=== PATIENT | female | born 1990 | race Caucasian/White ===

== ENCOUNTER → 2016-10-10 | Outpatient (CLI) | payer OTHER ==
[2016-04-19 08:02] VITALS: BP 140/70
[2016-10-10 16:05] LABS: BASO # 0.1 x10^3/uL (0.0-0.2); BASO % 1 % (0-3); EOS % 2 % (0-3); HEMATOCRIT 40.5 % (36.0-47.0); HEMOGLOBIN 13.9 g/dL (12.0-15.5); LYMPH % 29 % (24-48); MEAN CORPUSCULAR HEMOGLOBIN 31 pg (25-35); MEAN CORPUSCULAR HGB CONC 34 g/dL (31-37); MEAN CORPUSCULAR VOLUME 92 fL (79-100); MONO % 8 % (0-9); NEUT % 61 % (31-73); PLATELET COUNT 222 x10^3/uL (140-400); RED BLOOD COUNT 4.42 x10^6/uL (3.50-5.40); RED CELL DISTRIBUTION WIDTH 12.5 % (11.5-14.5); WHITE BLOOD COUNT 13.8 x10^3/uL (4.0-11.0)
[2016-10-14 15:04] LABS: RPR REFLEX Non Reactive (Non Reactive)
== END | disposition home or self-care (01) ==
LOC: LAB 15:37
PROVIDERS: ATTEND Obstetrics & Gynecology
DX: Z32.01 Encounter for pregnancy test, result positive (principal)
CPT/HCPCS: 36415; 85027; 86593; 86703; 86762; 86850; 86900; 86901; 87340; 87341

== ENCOUNTER 2016-10-14 11:50 | Emergency (ER) | payer OTHER ==
[~2016-10-14] VITALS: Ht 170.2 cm; Wt 117.5 kg
[2016-10-14 12:05] VITALS: BP 162/95
--- NOTE | 2016-10-14 12:38 | ED.ADGEN ---
Past Medical History Past Medical History: No Pertinent History Past Surgical History: Cholecystectomy Alcohol Use: None Drug Use: None Adult General Chief Complaint Chief Complaint: VAGINAL BLEEDING HPI HPI Patient is a 25 year old G3, P2 1 female with estimated gestation 5 week who presents with intermittent vaginal bleeding with dull burning pelvic pain since yesterday. Patient ports minimal bleeding, which has been both dark brown and bright red at times. She currently denies any pain or bleeding. She denies dizziness lightheadedness or shortness of breath. Patient has been working with her fertility specialist/OB Dr. Grove and was taking Clomid and Glucophage prior to conceiving and is currently on Provera. She contacted her OB /OYSTER GROWER's office and was instructed to come to the emergency department today. Review of Systems Review of Systems ROS as per [facility] Allergies Allergies Allergies Coded Allergies Type Severity Reaction Last Updated Verified No Known Drug Allergies 04/19/16 No Physical Exam Physical Exam Constitutional: Well developed, well nourished, no acute distress, non-toxic appearance. [] HENT: Normocephalic, atraumatic, bilateral external ears normal, oropharynx moist, no oral exudates, nose normal. [] Eyes: PERRLA, EOMI, conjunctiva normal, no discharge. [] Neck: Normal range of motion, no tenderness, supple, no stridor. [] Cardiovascular:Heart rate regular rhythm, no murmur [] Lungs & Thorax: Bilateral breath sounds clear to auscultation [] Abdomen: Bowel sounds normal, soft, no tenderness, no masses, no pulsatile masses. [] Skin: Warm, dry, no erythema, no rash. [] Back: No tenderness, no CVA tenderness. [] Extremities: No tenderness, no cyanosis, no clubbing, ROM intact, no edema. [] Neurologic: Alert and oriented X 3, normal motor function, normal sensory function, no focal deficits noted. [] Psychologic: Affect normal, judgement normal, mood normal. [] Current Patient Data Vital Signs Vital Signs Date Time Temp Pulse Resp B/P (MAP) Pulse Ox O2 Delivery O2 Flow Rate FiO2 10/14/16 12:05 98.6 106 16 162/95 (117) 98 Room Air 98.6 Lab Values Laboratory Tests Test 10/14/16 11:24 10/14/16 12:25 POC Urine HCG, Qualitative Hcg positive (Negative) White Blood Count 12.4 x10^3/uL (4.0-11.0) H Red Blood Count 4.78 x10^6/uL (3.50-5.40) Hemoglobin 15.2 g/dL (12.0-15.5) Hematocrit 43.5 % (36.0-47.0) Mean Corpuscular Volume 91 fL (79-100) Mean Corpuscular Hemoglobin 32 pg (25-35) Mean Corpuscular Hemoglobin Concent 35 g/dL (31-37) Red Cell Distribution Width 12.8 % (11.5-14.5) Platelet Count 249 x10^3/uL (140-400) Neutrophils (%) (Auto) 61 % (31-73) Lymphocytes (%) (Auto) 28 % (24-48) Monocytes (%) (Auto) 8 % (0-9) Eosinophils (%) (Auto) 2 % (0-3) Basophils (%) (Auto) 1 % (0-3) Neutrophils # (Auto) 7.6 x10^3uL (1.8-7.7) Lymphocytes # (Auto) 3.5 x10^3/uL (1.0-4.8) Monocytes # (Auto) 0.9 x10^3/uL (0.0-1.1) Eosinophils # (Auto) 0.3 x10^3/uL (0.0-0.7) Basophils # (Auto) 0.1 x10^3/uL (0.0-0.2) Maternal Serum HCG Beta Subunit 148 mIU/mL (0-6) H Laboratory Tests 10/14/16 12:25 EKG EKG [] Radiology/Procedures Radiology/Procedures [The ultrasound less than 14 weeks: No evidence of IUP or adnexal mass concerning for ectopic .] Impressions: Early versus threatened miscarriage versus ectopic . Course & Med Decision Making Course & Med Decision Making Pertinent Labs and Imaging studies reviewed. (See chart for details) [Case reviewed with Dr. Grove. Conditions are to return home follow-up in clinic in one week. Signs and symptoms of ectopic discussed in detail. Return precautions reviewed.] Dragon Disclaimer Dragon Disclaimer This electronic medical record was generated, in whole or in part, using a voice recognition dictation system. ABIEL GERONIMO DO October 14, 2016 12:38
[2016-10-14 12:41] LABS: BASO # 0.1 x10^3/uL (0.0-0.2); BASO % 1 % (0-3); EOS % 2 % (0-3); HEMATOCRIT 43.5 % (36.0-47.0); HEMOGLOBIN 15.2 g/dL (12.0-15.5); LYMPH # 3.5 x10^3/uL (1.0-4.8); LYMPH % 28 % (24-48); MEAN CORPUSCULAR HEMOGLOBIN 32 pg (25-35); MEAN CORPUSCULAR HGB CONC 35 g/dL (31-37); MEAN CORPUSCULAR VOLUME 91 fL (79-100); MONO % 8 % (0-9); NEUT % 61 % (31-73); PLATELET COUNT 249 x10^3/uL (140-400); RED BLOOD COUNT 4.78 x10^6/uL (3.50-5.40); RED CELL DISTRIBUTION WIDTH 12.8 % (11.5-14.5); WHITE BLOOD COUNT 12.4 x10^3/uL (4.0-11.0)
--- NOTE | 2016-10-14 14:58 | RAD ---
Indication: Vaginal bleeding and . Transabdominal and transvaginal sonography was performed. The uterus measures 9.7 x 5.0 x 5.5 cm. The endometrium is thickened measuring 13 mm. No myometrial mass is identified. No intrauterine gestational sac is present. Adnexal evaluation demonstrates the right ovary to measure 2.4 x 1.7 x 2.1 cm. The left ovary measures 3.1 x 2.3 cm and contains a 1.8 cm cyst. No free fluid or other mass is detected. Impression: No evidence of intrauterine or ectopic . There is some thickening of the endometrium which could be a decidual reaction from early . Follow-up could be performed. Patient does have a 1.8 cm left ovarian cyst.
== END 2016-10-14 15:30 | disposition home or self-care (01) ==
LOC: ER 11:50
DX: O46.91 Antepartum hemorrhage, unspecified, first trimester (principal); Z3A.01 Less than 8 weeks gestation of pregnancy; Z90.49 Acquired absence of other specified parts of digestive tract
CPT/HCPCS: 36415; 76801; 76817; 81025; 84702; 85027; 86900; 86901; 99285-25

== ENCOUNTER → 2018-08-26 | Outpatient (CLI) | payer OTHER ==
--- NOTE | 2018-08-26 15:28 | KCIC ---
Indication:Bleeding for one day. TECHNIQUE: Ultrasound OB less than 14 weeks. COMPARISON: None FINDINGS: The uterus is anteverted and measures 11.4 x 5.6 x 7.0 cm (nodule, AP, transverse). Cervix is closed. Single intrauterine gestation sac is seen with sac diameter of 1.2 cm corresponding to gestation age of 6 weeks 0 days. No yolk sac or pole is seen. Left ovary measures 2.5 x 2.0 x 1.9 cm and shows blood flow. The right ovary is not visualized. No free pelvic fluid. IMPRESSION: 1. Single intrauterine gestation sac corresponding to gestation age of 6 weeks 0 days without visualization of pole or yolk sac. Follow-up ultrasound recommended to document pole. 2. Right ovary not seen. Electronically signed by: Shad Duarte DO (08/26/2018 3:25 PM) [facility]
== END | disposition home or self-care (01) ==
LOC: KCIC US 12:36
PROVIDERS: ATTEND Family Medicine
DX: O46.8X1 Other antepartum hemorrhage, first trimester (principal); Z3A.01 Less than 8 weeks gestation of pregnancy
CPT/HCPCS: 76801; 76817

== ENCOUNTER → 2018-09-16 | Outpatient (CLI) | payer OTHER ==
--- NOTE | 2018-09-16 16:49 | RAD ---
Examination: Obstetric ultrasound limited HISTORY: History of no heart tones COMPARISON: 08/26/2018 FINDINGS: Single living intrauterine identified with heart rate of 182 bpm. The crown-rump length measures 2 cm corresponding to 8 weeks and 4 days. Estimated date of delivery by ultrasound 04/24/2019. Clinical age is 9 weeks and 1 day with estimated delivery by LMP 04/20/2019. IMPRESSION: Single living intrauterine with heart rate of 182 bpm. Electronically signed by: Cole Metz MD (09/16/2018 4:46 PM) [id number]
== END | disposition home or self-care (01) ==
LOC: US 15:56
PROVIDERS: ATTEND Obstetrics & Gynecology
DX: O26.841 Uterine size-date discrepancy, first trimester (principal); Z3A.09 9 weeks gestation of pregnancy
CPT/HCPCS: 76815

== ENCOUNTER → 2018-12-04 | Outpatient (CLI) | payer OTHER ==
--- NOTE | 2018-12-04 17:48 | KCIC ---
Examination: Obstetric ultrasound greater than 14 weeks HISTORY: History of anatomical survey COMPARISON: 09/16/2018. FINDINGS: Single living intrauterine identified with heart of 141 bpm. Three-vessel cord is seen. 4 chamber heart seen. Cord insertion, fluid in the bladder, stomach, kidneys, spine, brain are identified. position is cephalic. Cervical length is 6.2 cm. Amniotic fluid index is 18.7 cm. LMP 07/18/2018 Clinical age 19 weeks and 6 days with estimated date delivery 04/24/2019. The biparietal diameter measures 5.2 cm corresponding to 21 weeks and 5 days. Head circumference measures 18.6 cm corresponding to 21 weeks and 0 days. Abdominal circumference measures 15.5 cm corresponding to 20 weeks and 5 days. Femur length measures 3.5 cm corresponding 21 weeks and 1 day. Head circumference to abdominal circumference ratio 1.2. Estimated weight 387 g Gestational age by ultrasound 21 weeks and 1 day. Estimated date of delivery by ultrasound 04/15/2019. IMPRESSION: 1. Single living intrauterine as described above. Electronically signed by: Cole Metz MD (12/04/2018 5:45 PM) [id number]
== END | disposition home or self-care (01) ==
LOC: KCIC US 12:14
PROVIDERS: ATTEND Obstetrics & Gynecology
DX: O09.92 Supervision of high risk pregnancy, unspecified, second trimester (principal); O26.842 Uterine size-date discrepancy, second trimester; Z3A.21 21 weeks gestation of pregnancy
CPT/HCPCS: 76805

== ENCOUNTER → 2019-01-20 | Outpatient (CLI) | payer OTHER ==
[2019-01-20 10:06] LABS: BASO % 0 % (0-3); EOS # 0.2 x10^3/uL (0.0-0.7); EOS % 1 % (0-3); HEMATOCRIT 37.5 % (36.0-47.0); HEMOGLOBIN 12.9 g/dL (12.0-15.5); LYMPH # 2.4 x10^3/uL (1.0-4.8); LYMPH % 19 % (24-48); MEAN CORPUSCULAR HEMOGLOBIN 31 pg (25-35); MEAN CORPUSCULAR HGB CONC 34 g/dL (31-37); MEAN CORPUSCULAR VOLUME 90 fL (79-100); MONO # 0.6 x10^3/uL (0.0-1.1); MONO % 5 % (0-9); NEUT # 9.1 x10^3/uL (1.8-7.7); NEUT % 74 % (31-73); PLATELET COUNT 196 x10^3/uL (140-400); RED BLOOD COUNT 4.15 x10^6/uL (3.50-5.40); RED CELL DISTRIBUTION WIDTH 13.1 % (11.5-14.5); WHITE BLOOD COUNT 12.4 x10^3/uL (4.0-11.0)
== END | disposition home or self-care (01) ==
LOC: LAB 08:34
PROVIDERS: ATTEND Obstetrics & Gynecology
DX: O09.90 Supervision of high risk pregnancy, unspecified, unspecified trimester (principal)
CPT/HCPCS: 36415; 82950; 85025

== ENCOUNTER → 2019-01-28 | Outpatient (CLI) | payer OTHER | END | disposition home or self-care (01) | LOC: LAB 08:37 | PROVIDERS: ATTEND Obstetrics & Gynecology | DX: O09.90 Supervision of high risk pregnancy, unspecified, unspecified trimester (principal) | CPT/HCPCS: 36415; 82947; 82950 ==

== ENCOUNTER 2019-03-18 12:40 | Observation (INO) | payer OTHER ==
--- NOTE | 2019-03-18 14:14 | RAD ---
EXAM: OBSTETRIC ULTRASOUND WITH BIOPHYSICAL PROFILE. HISTORY: Hypertension in . COMPARISON: None. FINDINGS: Sonographic evaluation of the uterus, fetus and maternal pelvis was performed with biophysical profile. There is a single fetus in vertex presentation. heart rate is 144 bpm. Estimated gestational age based on measurements is 38 weeks one day. Biparietal diameter, head circumference, abdominal circumference, and femur length are commensurate. Estimated weight is 3304 g. The placenta is posterior. There is no evidence of placenta previa. Amniotic fluid volume appears normal with amniotic fluid index 12.2 cm. Biophysical profile score: 8/8. breathin. tone: 2. movement: 2. Amniotic fluid volume: 2. The maternal adnexa are obscured by positioning currently. IMPRESSION: 1. Biophysical profile score: 8/8. 2. Single fetus in vertex presentation. heart rate 144 bpm. Estimated gestational age based on measurements 38 weeks one day. Electronically signed by: Scottie Mantilla MD (03/18/2019 2:11 PM) [facility]
== END 2019-03-18 14:53 | disposition home or self-care (01) ==
LOC: 3 SO LND 12:40
PROVIDERS: ADMIT Obstetrics & Gynecology; ATTEND Obstetrics & Gynecology
DX: Z34.93 Encounter for supervision of normal pregnancy, unspecified, third trimester (principal); Z3A.34 34 weeks gestation of pregnancy
CPT/HCPCS: 76815; 76819; G0378; G0379; 59025

== ENCOUNTER 2019-03-25 18:44 | Observation (INO) | payer OTHER ==
[2019-03-25 20:00] VITALS: BP 141/79
== END 2019-03-25 20:26 | disposition home or self-care (01) ==
LOC: 3 SO LND 18:44
PROVIDERS: ADMIT Obstetrics & Gynecology; ATTEND Obstetrics & Gynecology
DX: O10.913 Unspecified pre-existing hypertension complicating pregnancy, third trimester (principal); Z3A.35 35 weeks gestation of pregnancy
CPT/HCPCS: G0378; G0379

== ENCOUNTER 2019-04-01 14:56 | Observation (INO) | payer OTHER | END 2019-04-01 16:40 | disposition home or self-care (01) | LOC: 3 SO LND 14:56 | PROVIDERS: ADMIT Obstetrics & Gynecology; ATTEND Obstetrics & Gynecology | DX: O16.9 Unspecified maternal hypertension, unspecified trimester (principal); Z3A.00 Weeks of gestation of pregnancy not specified | CPT/HCPCS: G0378; G0379; 59025 ==

== ENCOUNTER 2019-04-08 15:06 | Observation (INO) | payer OTHER | END 2019-04-08 18:37 | disposition home or self-care (01) | LOC: 3 SO LND 15:06 | PROVIDERS: ADMIT Obstetrics & Gynecology; ATTEND Obstetrics & Gynecology | DX: O10.913 Unspecified pre-existing hypertension complicating pregnancy, third trimester (principal); Z3A.34 34 weeks gestation of pregnancy | CPT/HCPCS: G0378; G0379; 59025 ==

== ENCOUNTER 2019-04-15 16:54 | Inpatient (IN) | payer OTHER ==
[~2019-04-15] VITALS: Ht 170.2 cm; Wt 123.4 kg
[2019-04-15] MEDS ORDERED: LIDOCAINE 1% PF 30 ML VIAL. INJ PRN (17:30)
[2019-04-15] MEDS ORDERED: TERBUTALINE 1 MG/ML VIAL. SQ PRN (17:30)
[2019-04-15] MEDS ORDERED: DINOPROSTONE 10 MG SUPP.VAG VG ONE (17:30)
[2019-04-15] MEDS ORDERED: NALBUPHINE 10 MG/ML AMPUL. IV PRN ×2 (17:30)
[2019-04-15] MEDS ORDERED: 0.9 % SODIUM CHLORIDE 10 ML DISP.SYRIN. IV PRN (17:30)
[2019-04-15] MEDS ORDERED: IBUPROFEN 400 MG TABLET. PO PRN (17:30)
[2019-04-15] MEDS ORDERED: OXYTOCIN 30 UNIT/500 ML PREMIX 500 ML IV PRN ×2 (17:30)
[2019-04-15 17:59] VITALS: BP 125/58
[2019-04-15 18:08] LABS: BASO % 1 % (0-3); EOS # 0.1 x10^3/uL (0.0-0.7); EOS % 1 % (0-3); HEMATOCRIT 37.4 % (36.0-47.0); LYMPH # 2.7 x10^3/uL (1.0-4.8); LYMPH % 25 % (24-48); MEAN CORPUSCULAR HEMOGLOBIN 31 pg (25-35); MEAN CORPUSCULAR HGB CONC 35 g/dL (31-37); MEAN CORPUSCULAR VOLUME 89 fL (79-100); MONO # 1.1 x10^3/uL (0.0-1.1); MONO % 10 % (0-9); NEUT # 6.8 x10^3/uL (1.8-7.7); NEUT % 64 % (31-73); PLATELET COUNT 183 x10^3/uL (140-400); RED BLOOD COUNT 4.19 x10^6/uL (3.50-5.40); RED CELL DISTRIBUTION WIDTH 13.6 % (11.5-14.5); WHITE BLOOD COUNT 10.7 x10^3/uL (4.0-11.0)
[2019-04-15 18:10] LABS: BILIRUBIN,URINE NEGATIVE (NEG); CLARITY,URINE CLEAR; COLOR,URINE YELLOW; NITRITE,URINE NEGATIVE (NEG); PH,URINE 6.5; PROTEIN,URINE NEGATIVE (NEG-TRACE); UROBILINOGEN,URINE 0.2 mg/dL (0.2 mg/dL)
[2019-04-15] MEDS: IV RINGERS,LACTATED 1000ML 1,000 ML IV SCH (18:14)
[2019-04-15 18:18] LABS: BACTERIA,URINE FEW /HPF (0-FEW); RBC,URINE 0 /HPF (0-2); SQUAMOUS EPITHELIAL CELL,UR FEW /LPF; WBC,URINE OCC /HPF (0-4)
[2019-04-15] MEDS ORDERED: ACETAMINOPHEN 500 MG TABLET PO PRN (22:00)
[2019-04-15] MEDS ORDERED: diphenhydrAMINE HCL 25 MG CAPSULE PO PRN (22:00)
--- NOTE | 2019-04-16 08:26 | PDOC1 ---
OB - History Hx of Present Care: Good Care Ultrasounds: Normal mid trimester US Obstetrical Complications: Other (CHTN) Medical Complications: None Past Family/Social History * Past Medical, Surgical, Family and Obstetric Histories reviewed from chart. Rubella: Immune RPR/VDRL: Negative GBS Status: Negative HBsAG: Negative OB - Chief Complaint & HPI Date of Admission: Date of Admission: Apr 15, 2019 at 16:54 Chief Complaint/History : 4 Para: 2 EGA: 39 Reason for admission: induction of labor (CHTN) Admission Nurse Assessment Rev: Yes OB - Admission Exam Physical Exam Vitals: VS - Last 72 Hours, by Label Date Time Temp Pulse Resp B/P (MAP) Pulse Ox O2 Delivery O2 Flow Rate FiO2 04/15/ 17:59 93 18 125/58 (80) Room Air HEENT: Normal, TM's Normal Heart: Regular Rate Lungs: Clear Abdomen: Gravid, Non tender, Soft Extremities: Edema Reflexes: Normal Cervical Dilatation: Fingertip Effacement: 50% Station: -3 Membranes: Intact Heart Rate: Normal Accelerations: Accelerations Present Decelerations: No decelerations Contractions on Admission: None Text A: 39 wks IUP CHTN P: IOL cervidil, then pitocin. SAMEER SCOTT Jr, MD Apr 16, 2019 08:26
[2019-04-16] MEDS ORDERED: L&D EPIDURAL SYRINGE 50 ML ONE ×2 (09:17→12:40)
[2019-04-16] MEDS ORDERED: fentaNYL PF VIAL 100 MCG/2 ML VIAL ONE (09:17)
[2019-04-16] MEDS ORDERED: ROPIVacaine 0.2% PF 10 ML VIAL. ONE ×2 (09:17→10:00)
[2019-04-16] MEDS: IV RINGERS,LACTATED 1000ML 1,000 ML IV SCH ×3 (09:48→17:21)
[2019-04-16] MEDS ORDERED: L&D EPIDURAL 50 ML SYRINGE. ONE (10:00)
[2019-04-16] MEDS ORDERED: IV RINGERS,LACTATED 1000ML 1,000 ML IV ONE (12:33)
[2019-04-16] MEDS ORDERED: L&D EPIDURAL SYRINGE 50 ML EPID PRN (12:45)
[2019-04-16] MEDS ORDERED: NALOXONE 0.4 MG/ML VIAL. IV PRN (12:45)
[2019-04-16] MEDS ORDERED: ePHEDrine PF IN SALINE 50 MG/10 ML SYRINGE. IV PRN (12:45)
[2019-04-16] MEDS ORDERED: OXYTOCIN PREMIX 30 UNIT/500 ML NS BAG. IV ONE (14:00)
[2019-04-16] MEDS: ONDANSETRON PF 4 MG/2 ML VIAL. IV PRN ×2 (14:28→21:50)
[2019-04-16] MEDS ORDERED: ceFAZolin SODIUM 3 GM in IV DEXTROSE 5% 100ML 100 ML IV ONE (15:45)
[2019-04-16] MEDS ORDERED: CITRIC ACID/SODIUM CITRATE 30 ML SOLUTION. PO ONE (15:45)
[2019-04-16] MEDS ORDERED: OXYTOCIN 10 UNIT/ML VIAL. ONE (16:06)
[2019-04-16] MEDS ORDERED: MORPHINE PF 10 MG/10 ML AMPUL. ONE (16:21)
--- NOTE | 2019-04-16 16:48 | PDOC4 ---
OB Operative Note Date: Apr 16, 2019 PRE OP DIAGNOSIS: NRFHT POST OP DIAGNOSIS: NRFHT OPERATION PERFORMED: L [facility] Surgeon Dr. Grove Diabetes Territory Manager Dr. Zuniga Anesthesia: Regional (Epidural) Blood Loss 700 ml Specimen placenta and OB Findings: Position (Vertex), Sex (Male), (8/9), Weight (8 Lb 10 oz) Complications none Additional Remarks pt. SAMEER Fuller Jr, MD Apr 16, 2019 16:48
[2019-04-16] MEDS ORDERED: FAMOTIDINE 20 MG/2 ML VIAL ONE (16:57)
[2019-04-16] MEDS ORDERED: ONDANSETRON PF 4 MG/2 ML VIAL. ONE (16:57)
[2019-04-16] MEDS ORDERED: DEXAMETHASONE SOD PHOS 4 MG/ML VIAL ONE (16:57)
[2019-04-16] MEDS ORDERED: METOCLOPRAMIDE HCL 10 MG/2 ML VIAL. ONE (16:57)
[2019-04-16] MEDS ORDERED: MAG HYDROX/ALUMINUM HYD/SIMETH 30 ML ORAL.SUSP PO PRN (17:00)
[2019-04-16] MEDS ORDERED: KETOROLAC 30 MG/ML VIAL. IV PRN (17:00)
[2019-04-16] MEDS ORDERED: diphenhydrAMINE ORAL ELIXIR 12.5 MG/5 ML ML PO PRN (17:00)
[2019-04-16] MEDS ORDERED: OXYTOCIN 30 UNIT/500 ML PREMIX 500 ML IV PRN (17:00)
[2019-04-16] MEDS ORDERED: 0.9 % SODIUM CHLORIDE 10 ML DISP.SYRIN. IV PRN (17:00)
[2019-04-16] MEDS: FERROUS SULFATE 325 MG TABLET. PO SCH (17:00)
[2019-04-16] MEDS ORDERED: ZOLPIDEM 5 MG TABLET. PO PRN (17:00)
[2019-04-16] MEDS ORDERED: ONDANSETRON PF 4 MG/2 ML VIAL. IV PRN (17:00)
[2019-04-16] MEDS ORDERED: IBUPROFEN 400 MG TABLET. PO PRN (17:00)
--- NOTE | 2019-04-16 18:11 | OP ---
DATE OF SURGERY: PREOPERATIVE DIAGNOSES: 1. A 39 weeks' intrauterine . 2. Chronic hypertension. 3. intolerance to labor. POSTOPERATIVE DIAGNOSES: 1. A 39 weeks' intrauterine . 2. Chronic hypertension. 3. intolerance to labor. PROCEDURE: Primary low-transverse section. SURGEON: Sameer Grove MD PATIENT CENTERED CARE SPECIALIST: Dr. Zuniga. ANESTHESIA: Epidural. ESTIMATED BLOOD LOSS: 700 mL. COMPLICATIONS: None. FINDINGS: Viable male , 's 8 and 9, weight 8 pounds 10 ounces; 3-vessel cord placenta delivered manually intact. INDICATIONS FOR PROCEDURE: This is a 28-year-old 4, para 2, at 39 weeks, presented for induction of labor secondary to chronic hypertension. The patient was provided Cervidil overnight. The following day, she was up to 2 cm. She dilated up to 3 cm and then began having intolerance to labor. The patient was counseled on the risks, benefits, and expectations and voiced clear understanding to proceed with primary low-transverse section. DESCRIPTION OF PROCEDURE: The patient was taken to the surgery suite and placed in the dorsal supine position. She was prepped with ChloraPrep and draped in a sterile fashion. After adequate anesthesia, a Pfannenstiel skin incision was made with the scalpel down to and through the fascia. Fascia was extended laterally using curved Glez scissors. Superior edge of the fascia was grasped with 2 Errol clamps and dissected through the abdominal rectus muscles using blunt dissection along with Bovie cautery. The same process took place inferiorly. The abdominal rectus muscle was dissected bluntly at the midline. The peritoneum was grasped with 2 hemostats and entered sharply with the Metzenbaum scissors. This incision was extended superiorly as well as inferiorly. The Casepr ring retractor was placed. A low-transverse hysterotomy incision was made with the scalpel down to the . The hysterotomy incision was extended laterally and superiorly digitally. With the aid of fundal pressure, the infant's head was delivered in a smooth atraumatic manner. With additional fundal pressure, the anterior shoulder was delivered followed by posterior shoulder and rest of the male was delivered. The was suctioned with a bulb syringe orally and nasally. Umbilical cord was clamped twice and cut, and a viable male infant was handed to the waiting nursing staff. Umbilical cord blood was then obtained. Three-vessel cord placenta was delivered manually intact. The uterus was then exteriorized and cleared of clot and debris with moist lap. The hysterotomy incision was re-approximated using 1-Vicryl suture in running locked fashion. Imbricated layer of #1 Vicryl suture was utilized in a running fashion for better hemostasis. Itrlif-lo-yawtg sutures were placed on the left apex of the hysterotomy incision for better hemostasis. Uterus was palpated firm. Fallopian tubes and ovaries appeared normal bilaterally. Posterior cul-de-sac was cleared of clot and debris with a moist lap. The uterus was then returned to the abdomen. The pericolic gutters were cleared of clot and debris with a moist lap. Hysterotomy incision was reviewed and it was hemostatic. The Casper ring retractor was removed. The peritoneum was re-approximated using #1 Vicryl suture in running fashion. Fascia was re-approximated using Stratafix in running fashion. Skin was re-approximated using 4-0 Vicryl sutures in subcuticular manner. Prevena wound VAC was placed. The patient tolerated the procedure well and was taken to the recovery room in stable condition. Sponge and needle counts were correct x3. SAMEER GROVE MD DR: JOSE/rj JOB#: [id number] / [id number]
[2019-04-16 19:55] VITALS: BP 147/79
[2019-04-16 20:00] VITALS: BP 159/79
[2019-04-16 20:20] VITALS: BP 160/84
[2019-04-16 20:30] VITALS: BP 145/80
[2019-04-16 21:35] VITALS: BP 134/75
[2019-04-17] MEDS: IV RINGERS,LACTATED 1000ML 1,000 ML IV SCH (01:21)
[2019-04-17 01:35] VITALS: BP 134/77
[2019-04-17] MEDS: DOCUSATE SODIUM 100 MG CAPSULE. PO PRN ×2 (05:07→19:57)
[2019-04-17 05:12] LABS: BASO % 0 % (0-3); EOS % 0 % (0-3); HEMOGLOBIN 11.6 g/dL (12.0-15.5); LYMPH # 2.4 x10^3/uL (1.0-4.8); LYMPH % 15 % (24-48); MEAN CORPUSCULAR HEMOGLOBIN 31 pg (25-35); MEAN CORPUSCULAR HGB CONC 34 g/dL (31-37); MEAN CORPUSCULAR VOLUME 90 fL (79-100); MONO # 1.1 x10^3/uL (0.0-1.1); MONO % 7 % (0-9); NEUT # 12.6 x10^3/uL (1.8-7.7); NEUT % 78 % (31-73); PLATELET COUNT 154 x10^3/uL (140-400); RED CELL DISTRIBUTION WIDTH 13.5 % (11.5-14.5); WHITE BLOOD COUNT 16.1 x10^3/uL (4.0-11.0)
[2019-04-17 06:09] VITALS: BP 128/74
[2019-04-17 07:36] LABS: % BANDS 5 % (0-9); % LYMPHS 15 % (24-48); % MONOS 6 % (0-10); % SEGS 74 % (35-66)
[2019-04-17 07:37] LABS: PLT ESTIMATE ADEQUATE (ADEQUATE)
[2019-04-17] MEDS: FERROUS SULFATE 325 MG TABLET. PO SCH ×2 (08:00→17:00)
[2019-04-17] MEDS: oxyCODONE/APAP 5/325 1 TAB TABLET PO PRN ×4 (08:43→22:40)
--- NOTE | 2019-04-17 09:11 | PDOC ---
OB Progress Note Date of Service 04/17/19 Time of Evaluation 0910 Notes Pt. feeling well. Pain controlled. No complaints. Lab Laboratory Tests Test 04/15/19 17:30 04/15/19 17:57 04/17/19 04:55 Urine Collection Type Unknown Urine Color Yellow Urine Clarity Clear Urine pH 6.5 Urine Specific [place] 1.025 Urine Protein Negative mg/dL (NEG-TRACE) Urine Glucose (UA) Negative mg/dL (NEG) Urine Ketones (Stick) Negative mg/dL (NEG) Urine Blood Negative (NEG) Urine Nitrite Negative (NEG) Urine Bilirubin Negative (NEG) Urine Urobilinogen Dipstick 0.2 mg/dL (0.2 mg/dL) Urine Leukocyte Esterase Negative (NEG) Urine RBC 0 /HPF (0-2) Urine WBC Occ /HPF (0-4) Urine Squamous Epithelial Cells Few /LPF Urine Bacteria Few /HPF (0-FEW) Urine Mucus Mod /LPF White Blood Count 10.7 x10^3/uL (4.0-11.0) 16.1 x10^3/uL (4.0-11.0) Red Blood Count 4.19 x10^6/uL (3.50-5.40) 3.80 x10^6/uL (3.50-5.40) Hemoglobin 13.0 g/dL (12.0-15.5) 11.6 g/dL (12.0-15.5) Hematocrit 37.4 % (36.0-47.0) 34.0 % (36.0-47.0) Mean Corpuscular Volume 89 fL (79-100) 90 fL (79-100) Mean Corpuscular Hemoglobin 31 pg (25-35) 31 pg (25-35) Mean Corpuscular Hemoglobin Concent 35 g/dL (31-37) 34 g/dL (31-37) Red Cell Distribution Width 13.6 % (11.5-14.5) 13.5 % (11.5-14.5) Platelet Count 183 x10^3/uL (140-400) 154 x10^3/uL (140-400) Neutrophils (%) (Auto) 64 % (31-73) 78 % (31-73) Lymphocytes (%) (Auto) 25 % (24-48) 15 % (24-48) Monocytes (%) (Auto) 10 % (0-9) 7 % (0-9) Eosinophils (%) (Auto) 1 % (0-3) 0 % (0-3) Basophils (%) (Auto) 1 % (0-3) 0 % (0-3) Neutrophils # (Auto) 6.8 x10^3/uL (1.8-7.7) 12.6 x10^3/uL (1.8-7.7) Lymphocytes # (Auto) 2.7 x10^3/uL (1.0-4.8) 2.4 x10^3/uL (1.0-4.8) Monocytes # (Auto) 1.1 x10^3/uL (0.0-1.1) 1.1 x10^3/uL (0.0-1.1) Eosinophils # (Auto) 0.1 x10^3/uL (0.0-0.7) 0.0 x10^3/uL (0.0-0.7) Basophils # (Auto) 0.0 x10^3/uL (0.0-0.2) 0.0 x10^3/uL (0.0-0.2) Treponema pallidum Antibody Nonreactive (Nonreactive) Segmented Neutrophils % 74 % (35-66) Band Neutrophils % 5 % (0-9) Lymphocytes % 15 % (24-48) Monocytes % 6 % (0-10) Platelet Estimate Adequate (ADEQUATE) Laboratory Tests Test 04/17/19 04:55 White Blood Count 16.1 x10^3/uL (4.0-11.0) Red Blood Count 3.80 x10^6/uL (3.50-5.40) Hemoglobin 11.6 g/dL (12.0-15.5) Hematocrit 34.0 % (36.0-47.0) Mean Corpuscular Volume 90 fL (79-100) Mean Corpuscular Hemoglobin 31 pg (25-35) Mean Corpuscular Hemoglobin Concent 34 g/dL (31-37) Red Cell Distribution Width 13.5 % (11.5-14.5) Platelet Count 154 x10^3/uL (140-400) Neutrophils (%) (Auto) 78 % (31-73) Lymphocytes (%) (Auto) 15 % (24-48) Monocytes (%) (Auto) 7 % (0-9) Eosinophils (%) (Auto) 0 % (0-3) Basophils (%) (Auto) 0 % (0-3) Neutrophils # (Auto) 12.6 x10^3/uL (1.8-7.7) Lymphocytes # (Auto) 2.4 x10^3/uL (1.0-4.8) Monocytes # (Auto) 1.1 x10^3/uL (0.0-1.1) Eosinophils # (Auto) 0.0 x10^3/uL (0.0-0.7) Basophils # (Auto) 0.0 x10^3/uL (0.0-0.2) Segmented Neutrophils % 74 % (35-66) Band Neutrophils % 5 % (0-9) Lymphocytes % 15 % (24-48) Monocytes % 6 % (0-10) Platelet Estimate Adequate (ADEQUATE) Medications Current Medications Sodium Chloride (Normal Saline Flush) 3 ml QSHIFT PRN IV AFTER MEDS AND BLOOD DRAWS; Start 04/15/19 at 17:30 Ringer's Solution 1,000 ml @ 125 mls/hr Q8H IV Last administered on 04/16/19at 17:04; Start 04/15/19 at 17:21 Nalbuphine HCl (Nubain) 5 mg PRN Q1HR PRN IV Mild to moderate labor pain; Start 04/15/19 at 17:30 Nalbuphine HCl (Nubain) 10 mg PRN Q1HR PRN IV Severe labor pain; Start 04/15/19 at 17:30 Terbutaline Sulfate (Brethine) 0.25 mg 1X PRN PRN SQ SEE COMMENTS; Start at 17:30; Stop 04/16/19 at 17:29; Status DC Lidocaine HCl (Xylocaine 1% Pf 30ml Vial) 30 ml 1X PRN PRN INJ SEE COMMENTS; S tart 04/15/19 at 17:30; Stop 04/17/19 at 17:29 Oxytocin/Sodium Chloride 500 ml @ 0 mls/hr CONT PRN IV SEE I/O RECORD Last administered on 04/16/19at 06:36; Start 04/15/19 at 17:30 Oxytocin/Sodium Chloride 500 ml @ 0 mls/hr CONT PRN PRN IV Post delivery ble eding; Start 04/15/19 at 17:30 Ibuprofen (Motrin) 800 mg PRN Q6HRS PRN PO PAIN; Start 04/15/19 at 17:30; Stop 04/17/19 at 03:28; Status DC Dinoprostone (Cervidil) 10 mg 1X ONCE VG Last administered on 04/15/19at 18:14; Start 04/15/19 at 17:30; Stop 04/15/19 at 17:31; Status DC Acetaminophen (Tylenol) 1,000 mg PRN Q6HRS PRN PO MODERATE PAIN 4-6 Last administered on 04/15/19at 22:01; Start 04/15/19 at 22:00 Diphenhydramine HCl (Benadryl) 25 mg PRN QHS PRN PO INSOMNIA Last administered on 04/16/19at 00:33; Start 04/15/19 at 22:00 Fentanyl Citrate (Fentanyl 2ml Vial) 100 mcg STK-MED ONCE .ROUTE ; Start 04/16/19 at 09:17; Stop 04/16/19 at 09:17; Status DC Ropivacaine (Naropin 0.2%) 10 ml STK-MED ONCE .ROUTE ; Start 04/16/19 at 09:17; Stop 04/16/19 at 09:17; Status DC Fentanyl Citrate 50 ml @ As Directed STK-MED ONCE .ROUTE ; Start 04/16/19 at 09:17; Stop 04/16/19 at 09:17; Status DC Ephedrine Sulfate (Akovaz) 50 mg STK-MED ONCE .ROUTE ; Start 04/16/19 at 10:03; Stop 04/16/19 at 10:03; Status DC Ringer's Solution 1,000 ml @ 0 mls/hr Q0M ONCE IV ; Start 04/16/19 at 12:33; Stop 04/16/19 at 12:40; Status DC Ephedrine Sulfate (ePHEDrine PF IN SALINE SYRINGE) 10 mg PRN Q2MIN PRN IV IF SBP<90; Start 04/16/19 at 12:45 Naloxone HCl (Narcan) 0.04 mg PRN Q1MIN PRN IV SEE COMMENTS; Start 04/16/19 at 12:45 Fentanyl Citrate 50 ml @ 14 mls/hr CONT PRN EPID PAIN Last administered on 04/16/19at 12:44; Start 04/16/19 at 12:45 Ondansetron HCl (Zofran) 4 mg PRN Q6HRS PRN IV NAUSEA/VOMITING Last administered on 04/16/19at 21:50; Start 04/16/19 at 12:45 Fentanyl Citrate 50 ml @ As Directed STK-MED ONCE .ROUTE ; Start 04/16/19 at 12:40; Stop 04/16/19 at 12:40; Status DC Cefazolin Sodium 3 gm/Dextrose 100 ml @ 200 mls/hr 1X ONCE IV ; Start 04/16/19 at 15:45; Stop 04/16/19 at 16:14; Status DC Citric Acid/ Sodium Citrate (Bicitra) 30 ml 1X ONCE PO Last administered on 04/16/19at 17:01; Start 04/16/19 at 15:45; Stop 04/16/19 at 15:46; Status DC Oxytocin (Pitocin) 10 unit STK-MED ONCE .ROUTE ; Start 04/16/19 at 16:06; Stop 04/16/19 at 16:07; Status DC Morphine Sulfate (Morphine Preservative Free) 10 mg STK-MED ONCE .ROUTE ; Start 04/16/19 at 16:21; Stop 04/16/19 at 16:21; Status DC Sodium Chloride (Normal Saline Flush) 3 ml QSHIFT PRN IV AFTER MEDS AND BLOOD DRAWS; Start 04/16/19 at 17:00 Oxytocin/Sodium Chloride 500 ml @ 125 mls/hr CONT PRN IV EXCESSIVE POST- BLEEDING Last administered on 04/16/19at 17:04; Start 04/16/19 at 17:00; Stop 04/17/19 at 00:59; Status DC Ibuprofen (Motrin) 800 mg PRN Q4HRS PRN PO INFLAMMATION; Start 04/16/19 at 17:00; Stop 04/17/19 at 03:28; Status DC Ondansetron HCl (Zofran) 4 mg PRN Q6HRS PRN IV NAUSEA/VOMITING; Start 04/16/19 at 17:00 Docusate Sodium (Colace) 100 mg PRN BID PRN PO CONSTIPATION Last administered on 04/17/19at 05:07; Start 04/16/19 at 17:00 Al Hydroxide/Mg Hydroxide (Mylanta Plus Xs) 30 ml PRN Q4HRS PRN PO HEARTBURN / GAS; Start 04/16/19 at 17:00 Simethicone (Gas-X) 80 mg PRN AFTMEALHC PRN PO GAS / BLOATING; Start 04/16/19 at 17:00 Diphenhydramine HCl (Benadryl Oral Elixir) 12.5 mg PRN Q6HRS PRN PO ITCHING; Start 04/16/19 at 17:00 Ferrous Sulfate (Feosol) 325 mg BIDWMEALS PO ; Start 04/16/19 at 17:00 Zolpidem Tartrate (Ambien) 5 mg PRN QHS PRN PO INSOMNIA, MAY REPEAT X1; Start 04/16/19 at 17:00 Oxycodone/ Acetaminophen (Percocet 5/325) 2 tab PRN Q4HRS PRN PO MODERATE PAIN, SEVERE PAIN Last administered on 04/17/19at 08:43; Start 04/16/19 at 17:00 Ketorolac Tromethamine (Toradol 30mg Vial) 30 mg PRN Q6HRS PRN IV PAIN Last administered on 04/17/19at 05:07; Start 04/16/19 at 17:00; Stop 04/21/19 at 16:59 Dexamethasone Sodium Phosphate (Decadron) 4 mg STK-MED ONCE .ROUTE ; Start 04/16/19 at 16:57; Stop 04/16/19 at 16:57; Status DC Famotidine (Pepcid Vial) 20 mg STK-MED ONCE .ROUTE ; Start 04/16/19 at 16:57; Stop 04/16/19 at 16:57; Status DC Metoclopramide HCl (Reglan Vial) 10 mg STK-MED ONCE .ROUTE ; Start 04/16/19 at 16:57; Stop 04/16/19 at 16:57; Status DC Ondansetron HCl (Zofran) 4 mg STK-MED ONCE .ROUTE ; Start 04/16/19 at 16:57; Stop 04/16/19 at 16:57; Status DC Nifedipine (Procardia Xl) 30 mg HS PO Last administered on 04/16/19at 21:28; Start 04/16/19 at 21:00 Ibuprofen (Motrin) 800 mg PRN Q6HRS PRN PO INFLAMMATION; Start 04/17/19 at 03:30 Active Scripts Active Reported No Known Medications Prior To Admisstion (Info) Each 1 Each MC Exam Abd; soft, mild tenderness, fundus firm Prevena in place Assessment POD#1 s/p c/s Plan of Care: Continue current Tx, Mgmt SAMEER SCOTT Jr, MD Apr 17, 2019 09:11
[2019-04-17 09:44] VITALS: BP 142/89
[2019-04-17] MEDS: IBUPROFEN 400 MG TABLET. PO PRN ×2 (12:53→19:56)
[2019-04-17 18:00] VITALS: BP 134/78
[2019-04-17 22:43] VITALS: BP 129/66
[2019-04-18] MEDS: oxyCODONE/APAP 5/325 1 TAB TABLET PO PRN ×5 (04:23→22:28)
[2019-04-18] MEDS: IBUPROFEN 400 MG TABLET. PO PRN ×3 (04:24→22:28)
[2019-04-18 04:38] VITALS: BP 137/80
[2019-04-18] MEDS: SIMETHICONE 80 MG TAB.CHEW PO PRN ×2 (05:11→13:19)
[2019-04-18] MEDS: DOCUSATE SODIUM 100 MG CAPSULE. PO PRN (05:11)
[2019-04-18] MEDS: FERROUS SULFATE 325 MG TABLET. PO SCH (08:00)
--- NOTE | 2019-04-18 08:52 | PDOC ---
OB Progress Note Date of Service 04/18/19 Time of Evaluation 0850 Notes PT. feeling well. Pain controlled. Pt. breast feeding. Lab Laboratory Tests Test 04/17/19 04:55 White Blood Count 16.1 x10^3/uL (4.0-11.0) Red Blood Count 3.80 x10^6/uL (3.50-5.40) Hemoglobin 11.6 g/dL (12.0-15.5) Hematocrit 34.0 % (36.0-47.0) Mean Corpuscular Volume 90 fL (79-100) Mean Corpuscular Hemoglobin 31 pg (25-35) Mean Corpuscular Hemoglobin Concent 34 g/dL (31-37) Red Cell Distribution Width 13.5 % (11.5-14.5) Platelet Count 154 x10^3/uL (140-400) Neutrophils (%) (Auto) 78 % (31-73) Lymphocytes (%) (Auto) 15 % (24-48) Monocytes (%) (Auto) 7 % (0-9) Eosinophils (%) (Auto) 0 % (0-3) Basophils (%) (Auto) 0 % (0-3) Neutrophils # (Auto) 12.6 x10^3/uL (1.8-7.7) Lymphocytes # (Auto) 2.4 x10^3/uL (1.0-4.8) Monocytes # (Auto) 1.1 x10^3/uL (0.0-1.1) Eosinophils # (Auto) 0.0 x10^3/uL (0.0-0.7) Basophils # (Auto) 0.0 x10^3/uL (0.0-0.2) Segmented Neutrophils % 74 % (35-66) Band Neutrophils % 5 % (0-9) Lymphocytes % 15 % (24-48) Monocytes % 6 % (0-10) Platelet Estimate Adequate (ADEQUATE) Medications Current Medications Sodium Chloride (Normal Saline Flush) 3 ml QSHIFT PRN IV AFTER MEDS AND BLOOD DRAWS; Start 04/15/19 at 17:30; Stop 04/17/19 at 12:00; Status DC Ringer's Solution 1,000 ml @ 125 mls/hr Q8H IV Last administered on 04/16/19at 17:04; Start 04/15/19 at 17:21; Stop 04/17/19 at 16:27; Status DC Nalbuphine HCl (Nubain) 5 mg PRN Q1HR PRN IV Mild to moderate labor pain; Start 04/15/19 at 17:30 Nalbuphine HCl (Nubain) 10 mg PRN Q1HR PRN IV Severe labor pain; Start 04/15/19 at 17:30 Terbutaline Sulfate (Brethine) 0.25 mg 1X PRN PRN SQ SEE COMMENTS; Start 04/15/19 at 17:30; Stop 04/16/19 at 17:29; Status DC Lidocaine HCl (Xylocaine 1% Pf 30ml Vial) 30 ml 1X PRN PRN INJ SEE COMMENTS; Start 04/15/19 at 17:30; Stop 04/17/19 at 17:29; Status DC Oxytocin/Sodium Chloride 500 ml @ 0 mls/hr CONT PRN IV SEE I/O RECORD Last administered on 04/16/19at 06:36; Start 04/15/19 at 17:30 Oxytocin/Sodium Chloride 500 ml @ 0 mls/hr CONT PRN PRN IV Post delivery bleeding; Start 04/15/19 at 17:30 Ibuprofen (Motrin) 800 mg PRN Q6HRS PRN PO PAIN; Start 04/15/19 at 17:30; Stop 04/17/19 at 03:28; Status DC Dinoprostone (Cervidil) 10 mg 1X ONCE VG Last administered on 04/15/19at 18:14; Start 04/15/19 at 17:30; Stop 04/15/19 at 17:31; Status DC Acetaminophen (Tylenol) 1,000 mg PRN Q6HRS PRN PO MODERATE PAIN 4-6 Last administered on 04/15/19at 22:01; Start 04/15/19 at 22:00 Diphenhydramine HCl (Benadryl) 25 mg PRN QHS PRN PO INSOMNIA Last administered on 04/16/19at 00:33; Start 04/15/19 at 22:00 Fentanyl Citrate (Fentanyl 2ml Vial) 100 mcg STK-MED ONCE .ROUTE ; Start 04/16/19 at 09:17; Stop 04/16/19 at 09:17; Status DC Ropivacaine (Naropin 0.2%) 10 ml STK-MED ONCE .ROUTE ; Start 04/16/19 at 09:17; Stop 04/16/19 at 09:17; Status DC Fentanyl Citrate 50 ml @ As Directed STK-MED ONCE .ROUTE ; Start 04/16/19 at 09:17; Stop 04/16/19 at 09:17; Status DC Ephedrine Sulfate (Akovaz) 50 mg STK-MED ONCE .ROUTE ; Start 04/16/19 at 10:03; Stop 04/16/19 at 10:03; Status DC Ringer's Solution 1,000 ml @ 0 mls/hr Q0M ONCE IV ; Start 04/16/19 at 12:33; Stop 04/16/19 at 12:40; Status DC Ephedrine Sulfate (ePHEDrine PF IN SALINE SYRINGE) 10 mg PRN Q2MIN PRN IV IF SBP<90; Start 04/16/19 at 12:45 Naloxone HCl (Narcan) 0.04 mg PRN Q1MIN PRN IV SEE COMMENTS; Start 04/16/19 at 12:45 Fentanyl Citrate 50 ml @ 14 mls/hr CONT PRN EPID PAIN Last administered on 04/16/19at 12:44; Start 04/16/19 at 12:45 Ondansetron HCl (Zofran) 4 mg PRN Q6HRS PRN IV NAUSEA/VOMITING Last administered on 04/16/19at 21:50; Start 04/16/19 at 12:45; Stop 04/17/19 at 12:00; Status DC Fentanyl Citrate 50 ml @ As Directed STK-MED ONCE .ROUTE ; Start 04/16/19 at 12:40; Stop 04/16/19 at 12:40; Status DC Cefazolin Sodium 3 gm/Dextrose 100 ml @ 200 mls/hr 1X ONCE IV ; Start 04/16/19 at 15:45; Stop 04/16/19 at 16:14; Status DC Citric Acid/ Sodium Citrate (Bicitra) 30 ml 1X ONCE PO Last administered on 04/16/19at 17:01; Start 04/16/19 at 15:45; Stop 04/16/19 at 15:46; Status DC Oxytocin (Pitocin) 10 unit STK-MED ONCE .ROUTE ; Start 04/16/19 at 16:06; Stop 04/16/19 at 16:07; Status DC Morphine Sulfate (Morphine Preservative Free) 10 mg STK-MED ONCE .ROUTE ; Start 04/16/19 at 16:21; Stop 04/16/19 at 16:21; Status DC Sodium Chloride (Normal Saline Flush) 3 ml QSHIFT PRN IV AFTER MEDS AND BLOOD DRAWS; Start 04/16/19 at 17:00 Oxytocin/Sodium Chloride 500 ml @ 125 mls/hr CONT PRN IV EXCESSIVE POST- BLEEDING Last administered on 04/16/19at 17:04; Start 04/16/19 at 17:00; Stop 04/17/19 at 00:59; Status DC Ibuprofen (Motrin) 800 mg PRN Q4HRS PRN PO INFLAMMATION; Start 04/16/19 at 17:00; Stop 04/17/19 at 03:28; Status DC Ondansetron HCl (Zofran) 4 mg PRN Q6HRS PRN IV NAUSEA/VOMITING; Start 04/16/19 at 17:00 Docusate Sodium (Colace) 100 mg PRN BID PRN PO CONSTIPATION Last administered on 04/18/19at 05:11; Start 04/16/19 at 17:00 Al Hydroxide/Mg Hydroxide (Mylanta Plus Xs) 30 ml PRN Q4HRS PRN PO HEARTBURN / GAS; Start 04/16/19 at 17:00 Simethicone (Gas-X) 80 mg PRN AFTMEALHC PRN PO GAS / BLOATING Last administered on 04/18/19at 05:11; Start 04/16/19 at 17:00 Diphenhydramine HCl (Benadryl Oral Elixir) 12.5 mg PRN Q6HRS PRN PO ITCHING; Start 04/16/19 at 17:00 Ferrous Sulfate (Feosol) 325 mg BIDWMEALS PO ; Start 04/16/19 at 17:00 Zolpidem Tartrate (Ambien) 5 mg PRN QHS PRN PO INSOMNIA, MAY REPEAT X1; Start 04/16/19 at 17:00 Oxycodone/ Acetaminophen (Percocet 5/325) 2 tab PRN Q4HRS PRN PO MODERATE PAIN, SEVERE PAIN Last administered on 04/18/19at 04:23; Start 04/16/19 at 17:00 Ketorolac Tromethamine (Toradol 30mg Vial) 30 mg PRN Q6HRS PRN IV PAIN Last administered on 04/17/19at 05:07; Start 04/16/19 at 17:00; Stop 04/21/19 at 16:59 Dexamethasone Sodium Phosphate (Decadron) 4 mg STK-MED ONCE .ROUTE ; Start 04/16/19 at 16:57; Stop 04/16/19 at 16:57; Status DC Famotidine (Pepcid Vial) 20 mg STK-MED ONCE .ROUTE ; Start 04/16/19 at 16:57; Stop 04/16/19 at 16:57; Status DC Metoclopramide HCl (Reglan Vial) 10 mg STK-MED ONCE .ROUTE ; Start 04/16/19 at 16:57; Stop 04/16/19 at 16:57; Status DC Ondansetron HCl (Zofran) 4 mg STK-MED ONCE .ROUTE ; Start 04/16/19 at 16:57; Stop 04/16/19 at 16:57; Status DC Nifedipine (Procardia Xl) 30 mg HS PO Last administered on 04/17/19at 19:56; Start 04/16/19 at 21:00 Ibuprofen (Motrin) 800 mg PRN Q6HRS PRN PO INFLAMMATION Last administered on 04/18/19at 04:24; Start 04/17/19 at 03:30 Active Scripts Active Reported No Known Medications Prior To Admisstion (Info) Each 1 Each MC Exam Abd: soft, mild tenderness, fundus firm Prevena in place Assessment POD#2 s/p c/s Plan of Care: Continue current Tx, Mgmt (Lasix for LE edema.) SAMEER SCOTT Jr, MD Apr 18, 2019 08:52
[2019-04-18] MEDS: FUROSEMIDE 20 MG TABLET PO SCH (09:07)
[2019-04-18] MEDS ORDERED: LIDOCAINE 1% PF 2 ML VIAL. ONE ×2 (09:36→10:00)
[2019-04-18 13:26] VITALS: BP 131/81
[2019-04-18 17:35] VITALS: BP 135/79
[2019-04-18 22:30] VITALS: BP 123/68
[2019-04-19 04:49] VITALS: BP 177/100
[2019-04-19] MEDS: oxyCODONE/APAP 5/325 1 TAB TABLET PO PRN ×3 (04:50→16:36)
[2019-04-19] MEDS: IBUPROFEN 400 MG TABLET. PO PRN ×2 (04:50→12:56)
--- NOTE | 2019-04-19 08:19 | PDOC3 ---
OB DISCHARGE SUMMARY DATE OF ADMISSION: 04/15/19 DATE OF DISCHARGE: 04/19/19 REASON FOR ADMISSION: section, Other (CHTN) INTRAPARTUM PROCEDURES: : Low Cerv Trans (FTD) DISCHARGE DIAGNOSIS: Term Delivered DISCHARGE INFORMATION: Activity (ad arlette), Diet (regular), Instructions (pelvic rest x 6 wks, no driving x 2 wks, no lifting> 20 lbs. x 6 wks) HOSPITAL COURSE Term gestation with CHTN delivered section without complications. SAMEER SCOTT Jr, MD Apr 19, 2019 08:19
[2019-04-19] MEDS ORDERED: DOCU-153 PO (08:22)
[2019-04-19] MEDS ORDERED: IBUP-1027 PO (08:22)
[2019-04-19] MEDS ORDERED: OXYC1TAB15 PO (08:22)
--- NOTE | 2019-04-19 08:23 | DISCH ---
DISCHARGE INSTRUCTIONS Condition on Discharge Condition on Discharge: Stable Activity After Discharge Activity Instructions for Disc: Activity as tolerated Lifting Instructions after Dis: No heavy lifting Driving Instructions after Dis: No driving for 2 weeks Diet after Discharge Diet after Discharge: Regular Contacting the DRJohnathan after DC Call your doctor for: Concerns you may have Follow-Up Follow up with: Dr. Grove in 2 wks SAMEER GROVE Jr, MD Apr 19, 2019 08:22
[2019-04-19] MEDS: FUROSEMIDE 20 MG TABLET PO SCH (10:33)
[2019-04-19] MEDS: DOCUSATE SODIUM 100 MG CAPSULE. PO PRN (10:33)
[2019-04-19 10:59] VITALS: BP 140/81
[2019-04-19] MEDS: FERROUS SULFATE 325 MG TABLET. PO SCH (16:36)
--- NOTE | 2019-04-20 18:06 | PATHOLOGY ---
[facility] Accession Number: [id number] . 01 Material submitted: . placenta - PLACENTA 38 WEEKS 6 DAYS . 01 Clinical history: . None-reassuring heart rate; ; gestational age 38 weeks; Apgars 8, 9 . 02 Diagnosis: 584 gram early term placenta of an estimated 38 - 39 weeks gestation with attached membranes and umbilical cord: - Placental infarct with associated intervillous thrombus. (JPM:[facility] 04/20/2019) [facility] 04/20/2019 1747 Local . 02 Comment: There is no evidence of an acute chorioamnionitis or villitis. (JP:[facility] 04/20/2019) . 02 Electronically signed: . Chetan Gill MD, Pathologist NPI- [id number] . 01 Gross description: . The specimen is received in formalin, labeled "Araceli Peralta, placenta". Received is a rich placenta with attached membranes and umbilical cord with a trimmed placental weight of 584 g and measuring 17.7 x 15.4 x 3.3 cm in greatest dimensions. The membranes are pink-hernandez and translucent in appearance, and the site of membrane rupture is 8.2 cm from the placental margin. The surface is intact displaying a normal arborizing vasculature pattern. The trivascular umbilical cord measures 33.4 cm in length by up to 2.1 cm in diameter and inserts centrally, 5.3 cm from the closest placental margin. The umbilical cord is pale martin in appearance with minimal helical twisting. The maternal surface is intact and complete; a slight amount of adherent blood coagulum is seen on the surface. Sectioning reveals red-brown cut surfaces displaying two pink-martin to hemorrhagic-appearing lesions measuring 0.5 and 2.5 cm, which encompass approximately 5% of the total placental volume. The specimen is submitted representatively as follows: . A1 proximal umbilical cord and surface vessels A2 umbilical cord and membrane roll A3-A4 litigation claim representative section of largest lesion, bisected A5 litigation claim representative section of smaller lesion. (CAA; 04/19/2019) QAC/QAC 04/19/2019 1545 Local . 02 Pathologist provided ICD-10: O82, Z3A.38, Z37.0 . 02 CPT . 422701 Specimen Comment: A courtesy copy of this report has been sent to [phone] Specimen Comment: Report sent to Performed at: 01 [facility] [address], [place] [id number] MD Deric Lujan MD Phone: [phone] Performed at: 02 [facility] [address] [place], [place] [id number] MD Chetan Gill MD Phone: [phone]
== END 2019-04-19 16:57 | disposition home or self-care (01) | DRG 788 ==
LOC: 3 SO LND 16:54
PROVIDERS: ADMIT Obstetrics & Gynecology; ATTEND Obstetrics & Gynecology
PROC: 10D00Z1 Extraction of Products of Conception, Low, Open Approach (ICD-10-PCS; principal; 2019-04-16)
DX: O77.9 Labor and delivery complicated by fetal stress, unspecified (principal); O16.4 Unspecified maternal hypertension, complicating childbirth; Z3A.39 39 weeks gestation of pregnancy; Z37.0 Single live birth; O12.04 Gestational edema, complicating childbirth
CPT/HCPCS: 36415; 81001; 85007; 85025; 86592; 86850; 86900; 86901; 88307; J1100; J1885; J2274; J2405; J2590; J2765; J2795; J3490; J7120; Q0163; G0378

== ENCOUNTER → 2020-03-02 | Outpatient (CLI) | payer OTHER ==
[~2020-03-02] MED LIST: DOCU-153 PO; IBUP-1027 PO; OXYC1TAB15 PO
[2020-03-02 11:16] LABS: FREE T4 1.07 ng/dL (0.76-1.46); THYROID STIM HORMONE (TSH) 4.102 uIU/mL (0.358-3.74)
== END | disposition home or self-care (01) ==
LOC: LAB 10:39
PROVIDERS: ATTEND Nurse Practitioner Gerontology
DX: E04.2 Nontoxic multinodular goiter (principal)
CPT/HCPCS: 36415; 84439; 84443; 84480

== ENCOUNTER → 2020-03-16 | Outpatient (CLI) | payer OTHER ==
--- NOTE | 2020-03-16 17:33 | KCIC ---
THYROID ULTRASOUND History: Reason: Multinodular goiter / Spl. Instructions: / History: Comparison: None. Technique: Multiple grayscale and color Doppler images of the thyroid gland were obtained. Findings: Right thyroid lobe: 6.2 x 2.6 x 2.4 cm. Heterogeneous with hypoechoic nodularity Left thyroid lobe: 5.5 x 2.2 x 2.2 cm. Heterogeneous with hypoechoic nodularity. Isthmus: 0.6 cm. No discrete thyroid nodule identified. IMPRESSION: 1. Enlarged diffusely heterogeneous thyroid, may represent nonspecific thyroiditis such as Kike's thyroiditis. Recommend correlation with thyroid lab values. Electronically signed by: Nate Zuniga DO (03/16/2020 5:30 PM) [id number]
== END ==
LOC: KCIC US 15:28
PROVIDERS: ATTEND Nurse Practitioner Gerontology
DX: E04.2 Nontoxic multinodular goiter (principal)
CPT/HCPCS: 76536